=== PATIENT | male | born 2000 | race Caucasian/White ===

== ENCOUNTER → 2018-05-12 | Outpatient (REF) | payer OTHER | LOC: M SFHCLERA 16:20 | DX: J02.9 Acute pharyngitis, unspecified (principal) ==

== ENCOUNTER → 2020-11-16 | Outpatient (CLI) | payer BC ==
--- NOTE | 2020-11-16 21:16 | REP ---
INDICATION: CONTUSION COMPARISON: None. TECHNIQUE: AP, lateral, bilateral oblique views of the left elbow FINDINGS: No acute fracture or dislocation is appreciated. Joint spaces and surrounding soft tissues appear normal. Lateral view demonstrates normal positioning to the anterior and posterior fat pads without evidence for effusion/hemarthrosis. No subcutaneous emphysema or foreign body identified. IMPRESSION: Normal elbow radiographs. <Electronically signed by Reji Cowan > 11/16/20 [id number]
--- NOTE | 2020-11-16 21:17 | REP ---
INDICATION: CONTUSION COMPARISON: None. TECHNIQUE: Internal rotation, external rotation, and Y view. FINDINGS: Old healed midclavicular shaft fracture. The acromioclavicular and glenohumeral joints are intact and normal. No periarticular calcifications or loose bodies are identified. IMPRESSION: Normal left shoulder radiographs. Old healed midclavicular shaft fracture noted. <Electronically signed by Reji Cowan > 11/16/20 [id number]
== END ==
LOC: M WUC 11:52
PROVIDERS: ATTEND Physician Assistant
DX: S40.012A Contusion of left shoulder, initial encounter (principal); S50.02XA Contusion of left elbow, initial encounter; X58.XXXA Exposure to other specified factors, initial encounter; Y92.9 Unspecified place or not applicable